=== PATIENT | female | born 1985 | race Caucasian/White ===

== ENCOUNTER 2017-03-29 15:30 | Observation (INO) | payer OTHER ==
[2017-03-29] MEDS ORDERED: PREN-380 PO (15:41)
[2017-03-29 16:12] VITALS: BP 114/71
== END 2017-03-29 20:35 | disposition home or self-care (01) ==
LOC: MLD 15:30
PROVIDERS: ADMIT Obstetrics & Gynecology; ATTEND Obstetrics & Gynecology
DX: O26.893 Other specified pregnancy related conditions, third trimester (principal); R10.9 Unspecified abdominal pain; O48.0 Post-term pregnancy; Z3A.40 40 weeks gestation of pregnancy
CPT/HCPCS: 76805; 81000; G0378; Q0092

== ENCOUNTER 2017-04-03 16:40 | Inpatient (IN) | payer SELFPAY ==
[~2017-04-03] VITALS: Ht 167.6 cm; Wt 72.6 kg
[~2017-04-03 16:40] MED LIST: PREN-380 PO
[2017-04-03 19:17] VITALS: BP 118/68
[2017-04-03] MEDS ORDERED: OXYTOCIN 20 UNITS in LACTATED RINGERS 1,000 ML IV SCH ×2 (20:42→20:50)
[2017-04-03] MEDS ORDERED: NALBUPHINE 10 MG/ML AMP IVP PRN (20:45)
[2017-04-03] MEDS ORDERED: MISOPROSTOL 25 MCG TAB VG ONE (20:45)
[2017-04-03] MEDS ORDERED: OXYTOCIN 10 UNITS/ML VIAL IM ONE (20:50)
[2017-04-03] MEDS ORDERED: MISOPROSTOL 25 MCG TAB ONE (21:17)
[2017-04-03 21:27] LABS: BASOPHILS # (AUTO) 0.1 K/uL (0.00-0.22); BASOPHILS % (AUTO) 0.7 % (0.0-2.0); EOSINOPHILS # (AUTO) 0.1 K/uL (0-0.4); EOSINOPHILS % (AUTO) 1.3 % (0.0-4.0); HEMATOCRIT 38.2 % (36-48); HEMOGLOBIN 12.3 g/dL (12.0-16.0); LYMPHOCYTES # (AUTO) 1.6 K/uL (2.5-16.5); LYMPHOCYTES % (AUTO) 16.7 % (20.5-51.1); MEAN CORPUSCULAR HEMOGLOBIN 26 pg (27-31); MEAN CORPUSCULAR HGB CONC 32 g/dL (33-37); MEAN CORPUSCULAR VOLUME 80 fL (80-94); MONOCYTES # (AUTO) 0.8 K/uL (0.8-1.0); MONOCYTES % (AUTO) 8.2 % (1.7-9.3); NEUTROPHILS # (AUTO) 7.3 K/uL (1.8-7.7); NEUTROPHILS % (AUTO) 73.1 % (42.2-75.2); PLATELET COUNT (AUTO) 168 K/uL (140-450); RED BLOOD CELL COUNT(AUTO) 4.76 MIL/uL (4.20-5.40); WHITE BLOOD COUNT (AUTO) 9.9 K/uL (4.8-10.8)
[2017-04-03 21:28] LABS: APPEARANCE,URINE SL CLOUDY (CLEAR); BILIRUBIN,URINE NEGATIVE (NEGATIVE); BLOOD, URINE 2+ (NEGATIVE); COLOR,URINE YELLOW (YELLOW); LEUKOCYTE ESTERASE ,URINE 2+ (NEGATIVE); NITRITE, URINE NEGATIVE (NEGATIVE); UGLUCOSE NEGATIVE (NEGATIVE)
[2017-04-03 21:36] LABS: CALCIUM OXALATE CRYSTALS,UR 0-10 /HPF (None Seen); RBC,URINE 11-20 (MOD) /HPF (0-5); WBC,URINE TOO MANY TO COUNT /HPF (0-5)
[2017-04-03 21:39] LABS: ALBUMIN 2.6 g/dL (3.4-5.0); ANION GAP 12.5 (8-16); CARBON DIOXIDE 24.3 mmol/L (21-32); CREATININE 0.7 mg/dL (0.6-1.3); POTASSIUM 3.8 mmol/L (3.5-5.1); TOTAL BILIRUBIN 0.1 mg/dL (0.0-1.0)
[2017-04-03 22:01] LABS: PROTHROMBIN TIME 9.3 secs (10.8-13.4)
[2017-04-03] MEDS ORDERED: AMPICILLIN 2,000 MG in NACL 0.9% 100 ML IV SCH (22:25)
[2017-04-03] MEDS ORDERED: AMPICILLIN 2,000 MG VIAL ONE (22:44)
[2017-04-04 01:06] VITALS: BP 134/79
[2017-04-04] MEDS ORDERED: AMPICILLIN 1,000 MG VIAL ONE ×4 (02:48→19:49)
[2017-04-04] MEDS ORDERED: OXYTOCIN 20 UNITS/LR PREMIX 1,000 ML IV ONE (03:19)
[2017-04-04] MEDS: AMPICILLIN 1,000 MG in NACL 0.9% 50 ML IV SCH ×2 (03:31→15:00)
[2017-04-04] MEDS ORDERED: NALBUPHINE HYDROCHLORIDE 10 MG/ML VIAL ONE (06:07)
--- NOTE | 2017-04-04 08:09 | NUR ---
PATIENT HAS BEEN SCREENED AND CATEGORIZED LOW NUTRITION RISK. PATIENT WILL BE SEEN WITHIN 7 DAYS OF ADMISSION. 04/10/[address]
[2017-04-04] MEDS ORDERED: ROPIVACAINE 0.2%/NS PREMIX 250 ML EPI ONE (10:55)
[2017-04-04] MEDS ORDERED: OXYTOCIN 10 UNITS/ML VIAL ONE (17:38)
[2017-04-04] MEDS ORDERED: LIDOCAINE 1% 0 ML ONE (17:39)
[2017-04-04] MEDS ORDERED: OXYTOCIN 20 UNITS in LACTATED RINGERS 1,000 ML IV SCH ×2 (20:42→21:55)
[2017-04-04] MEDS ORDERED: BENZOCAINE/MENTHOL 20%-0.5% 60 GM CAN TP PRN (21:55)
[2017-04-04] MEDS ORDERED: ACETAMINOPHEN 325 MG TAB PO PRN (21:55)
[2017-04-04] MEDS ORDERED: MEASLES, MUMPS, AND RUBELLA 1 VIAL SQVAC PRN (21:55)
[2017-04-05] MEDS: oxyCODONE/APAP 5/325 MG 1 TAB TAB PO PRN ×2 (07:56→17:30)
[2017-04-05] MEDS: BISACODYL 5 MG TABEC PO PRN (07:57)
[2017-04-05] MEDS: DOCUSATE SODIUM 100 MG GELCAP PO PRN (07:57)
[2017-04-05 07:58] LABS: HEMATOCRIT 32.7 % (36-48); HEMOGLOBIN 10.5 g/dL (12.0-16.0); MEAN CORPUSCULAR HEMOGLOBIN 26 pg (27-31); MEAN CORPUSCULAR HGB CONC 32 g/dL (33-37); MEAN CORPUSCULAR VOLUME 81 fL (80-94); PLATELET COUNT (AUTO) 165 K/uL (140-450); RED BLOOD CELL COUNT(AUTO) 4.06 MIL/uL (4.20-5.40); RED CELL DISTRIBUTION WIDTH 17.5 % (11.6-13.7)
[2017-04-05 08:46] LABS: LYMPHOCYTES % (MANUAL) 13 % (20-46); MONOCYTES % (MANUAL) 7 % (5-12)
[2017-04-06] MEDS: DOCUSATE SODIUM 100 MG GELCAP PO PRN (11:34)
[2017-04-06] MEDS: BISACODYL 5 MG TABEC PO PRN (11:34)
[2017-04-06] MEDS: oxyCODONE/APAP 5/325 MG 1 TAB TAB PO PRN (11:34)
== END 2017-04-06 21:25 | disposition home or self-care (01) | DRG 775 ==
LOC: MLD 16:40 → OBSVTOIN 20:30 → MFCC 04-05 00:45
PROVIDERS: ADMIT Obstetrics & Gynecology; ATTEND Obstetrics & Gynecology
PROC: 10D07Z6 Extraction of Products of Conception, Vacuum, Via Natural or Artificial Opening (ICD-10-PCS; principal; 2017-04-04)
PROC: 0W8NXZZ Division of Female Perineum, External Approach (ICD-10-PCS; 2017-04-04)
PROC: 00HU33Z Insertion of Infusion Device into Spinal Canal, Percutaneous Approach (ICD-10-PCS; 2017-04-04)
PROC: 3E0R3CZ (ICD-10-PCS; 2017-04-04)
PROC: 3E0234Z Introduction of Serum, Toxoid and Vaccine into Muscle, Percutaneous Approach (ICD-10-PCS; 2017-04-05)
DX: O41.03X0 Oligohydramnios, third trimester, not applicable or unspecified (principal); O48.0 Post-term pregnancy; Z37.0 Single live birth; O69.81X0 Labor and delivery complicated by cord around neck, without compression, not applicable or unspecified; Z3A.41 41 weeks gestation of pregnancy; Z23 Encounter for immunization
CPT/HCPCS: 36415; 51702; 59200; 76805; 80053; 81001; 85025; 85379; 85384; 85610; 85730; 86592; 86886; 86900; 86901; 87086; 87653-90; 90715; G0378; J0290; J2001; J2300; J2590; J2795; J7030; J7120; Q0092

== ENCOUNTER 2019-04-10 18:08 | Inpatient (IN) | payer MEDICAID ==
[~2019-04-10] VITALS: Ht 168 cm; Wt 74.4 kg
[2019-04-10] MEDS: LACTATED RINGERS 1,000 ML IV SCH (03:54)
[2019-04-10] MEDS ORDERED: NALBUPHINE 10 MG/ML AMP IVP PRN (18:45)
[2019-04-10] MEDS ORDERED: OXYTOCIN 10 UNITS/ML VIAL IM SCH (18:45)
[2019-04-10] MEDS ORDERED: METHYLERGONOVINE 0.2 MG/ML AMP IM PRN (18:45)
[2019-04-10] MEDS ORDERED: PROMETHAZINE 25 MG/ML VIAL IVP PRN (18:45)
[2019-04-10] MEDS ORDERED: CARBOPROST 250 MCG/ML AMP IM PRN (18:45)
[2019-04-10 18:59] VITALS: BP 112/69
[2019-04-10 19:40] LABS: BASOPHILS % (AUTO) 0.4 % (0.0-2.0); EOSINOPHILS # (AUTO) 0.1 K/uL (0-0.4); EOSINOPHILS % (AUTO) 1.2 % (0.0-4.0); HEMATOCRIT 37.1 % (36-48); LYMPHOCYTES # (AUTO) 2.1 K/uL (2.5-16.5); LYMPHOCYTES % (AUTO) 22.2 % (20.5-51.1); MEAN CORPUSCULAR HEMOGLOBIN 26 pg (27-31); MEAN CORPUSCULAR HGB CONC 32 g/dL (33-37); MEAN CORPUSCULAR VOLUME 79.8 fL (80-94); MONOCYTES # (AUTO) 0.7 K/uL (0.8-1.0); MONOCYTES % (AUTO) 7.6 % (1.7-9.3); NEUTROPHILS # (AUTO) 6.6 K/uL (1.8-7.7); NEUTROPHILS % (AUTO) 68.6 % (42.2-75.2); PLATELET COUNT (AUTO) 147 K/uL (140-450); RED BLOOD CELL COUNT(AUTO) 4.65 MIL/uL (4.20-5.40); RED CELL DISTRIBUTION WIDTH 18.3 % (11.6-13.7); WHITE BLOOD COUNT (AUTO) 9.6 K/uL (4.8-10.8)
[2019-04-10 19:42] LABS: APPEARANCE,URINE CLEAR (CLEAR); BILIRUBIN,URINE NEGATIVE (NEGATIVE); BLOOD, URINE NEGATIVE (NEGATIVE); COLOR,URINE YELLOW (YELLOW); LEUKOCYTE ESTERASE ,URINE 2+ (NEGATIVE); NITRITE, URINE NEGATIVE (NEGATIVE); UGLUCOSE NEGATIVE (NEGATIVE)
[2019-04-10] MEDS ORDERED: MISOPROSTOL 25 MCG TAB ONE (19:45)
[2019-04-10 19:58] LABS: RBC,URINE NONE SEEN /HPF (0-5); TRICHOMONAS,URINE None Seen /HPF (None Seen); YEAST,URINE None Seen /HPF (None Seen)
[2019-04-10] MEDS ORDERED: MISOPROSTOL 25 MCG TAB VG SCH (20:00)
[2019-04-10 20:01] LABS: CREATININE 0.7 mg/dL (0.6-1.3)
[2019-04-10 20:04] LABS: ALBUMIN 2.5 g/dL (3.4-5.0); TOTAL BILIRUBIN 0.2 mg/dL (0.0-1.0)
[2019-04-11] MEDS ORDERED: OXYTOCIN 20 UNITS/LR PREMIX 1,000 ML IV ONE (03:58)
[2019-04-11] MEDS ORDERED: OXYTOCIN 20 UNITS in LACTATED RINGERS 1,000 ML IV SCH ×2 (04:30→14:58)
[2019-04-11] MEDS ORDERED: ROPIVACAINE 0.2%/NS PREMIX 100 ML EPI ONE (08:18)
[2019-04-11] MEDS: LACTATED RINGERS 1,000 ML IV SCH (08:24)
[2019-04-11] MEDS ORDERED: LIDOCAINE 1% 500 MG/50 ML VIAL ONE (11:16)
[2019-04-11] MEDS ORDERED: OXYTOCIN 10 UNITS/ML VIAL ONE (11:16)
[2019-04-11] MEDS ORDERED: BISACODYL 5 MG TABEC PO PRN (15:00)
[2019-04-11] MEDS ORDERED: MEASLES, MUMPS, AND RUBELLA 1 VIAL SQVAC PRN (15:00)
[2019-04-11] MEDS ORDERED: DOCUSATE SODIUM 100 MG GELCAP PO PRN (15:00)
[2019-04-11] MEDS ORDERED: ACETAMINOPHEN 325 MG TAB PO PRN (15:00)
[2019-04-11] MEDS: IBUPROFEN 600 MG TAB PO PRN (21:33)
[2019-04-12] MEDS: IBUPROFEN 600 MG TAB PO PRN (08:09)
[2019-04-12 08:19] LABS: BASOPHILS % (AUTO) 0.2 % (0.0-2.0); EOSINOPHILS # (AUTO) 0.1 K/uL (0-0.4); EOSINOPHILS % (AUTO) 0.9 % (0.0-4.0); HEMATOCRIT 33.8 % (36-48); HEMOGLOBIN 10.9 g/dL (12.0-16.0); LYMPHOCYTES # (AUTO) 1.9 K/uL (2.5-16.5); LYMPHOCYTES % (AUTO) 16.3 % (20.5-51.1); MEAN CORPUSCULAR HEMOGLOBIN 26 pg (27-31); MEAN CORPUSCULAR HGB CONC 32 g/dL (33-37); MEAN CORPUSCULAR VOLUME 79.8 fL (80-94); MONOCYTES # (AUTO) 0.8 K/uL (0.8-1.0); MONOCYTES % (AUTO) 6.8 % (1.7-9.3); NEUTROPHILS # (AUTO) 8.9 K/uL (1.8-7.7); NEUTROPHILS % (AUTO) 75.8 % (42.2-75.2); PLATELET COUNT (AUTO) 127 K/uL (140-450); RED BLOOD CELL COUNT(AUTO) 4.24 MIL/uL (4.20-5.40); RED CELL DISTRIBUTION WIDTH 18.5 % (11.6-13.7); WHITE BLOOD COUNT (AUTO) 11.7 K/uL (4.8-10.8)
[2019-04-13] MEDS ORDERED: COMMUNICATION ORDER MC PRN (07:20)
[2019-04-13] MEDS ORDERED: MISC INJECTION IM PRN (10:55)
[2019-04-13] MEDS ORDERED: INFLUENZA VACCINE QUAD 0.5 ML SYR IM PRN (11:00)
[2019-04-13] MEDS ORDERED: FERR325E14 PO (12:51)
[2019-04-13] MEDS ORDERED: ACET-2619 PO ×2 (12:52→12:53)
== END 2019-04-13 17:00 | disposition home or self-care (01) | DRG 560 ==
LOC: MLD 18:08 → MFCC 04-11 19:45
PROVIDERS: ADMIT Obstetrics & Gynecology; ATTEND Obstetrics & Gynecology
PROC: 10E0XZZ Delivery of Products of Conception, External Approach (ICD-10-PCS; principal; 2019-04-11)
PROC: 3E0R3BZ Introduction of Anesthetic Agent into Spinal Canal, Percutaneous Approach (ICD-10-PCS; 2019-04-11)
PROC: 00HU33Z Insertion of Infusion Device into Spinal Canal, Percutaneous Approach (ICD-10-PCS; 2019-04-11)
PROC: 3E02340 Introduction of Influenza Vaccine into Muscle, Percutaneous Approach (ICD-10-PCS; 2019-04-11)
PROC: 3E0234Z Introduction of Serum, Toxoid and Vaccine into Muscle, Percutaneous Approach (ICD-10-PCS; 2019-04-11)
PROC: 3E033VJ Introduction of Other Hormone into Peripheral Vein, Percutaneous Approach (ICD-10-PCS; 2019-04-11)
DX: O69.81X0 Labor and delivery complicated by cord around neck, without compression, not applicable or unspecified (principal); O77.0 Labor and delivery complicated by meconium in amniotic fluid; Z37.0 Single live birth; Z3A.39 39 weeks gestation of pregnancy; Z23 Encounter for immunization
CPT/HCPCS: 36415; 59200; 59409; 76805; 80053; 81001; 85025; 86592; 86886; 86900; 86901; 87086; J2001; J2590; J2795; J7120; Q0092